=== PATIENT | female | born 1990 | race Caucasian/White ===

== ENCOUNTER 2018-05-03 08:24 | Inpatient (IN) | payer BC ==
[~2018-05-03] VITALS: Ht 165.1 cm; Wt 59.0 kg
[2018-05-03] MEDS ORDERED: CEFAZOLIN SOD 1 GM in D5W 50 ML IV ONE (09:15)
[2018-05-03] MEDS ORDERED: MIDAZOLAM HCL 5 MG/5 ML VIAL IVP ONE (10:17)
[2018-05-03] MEDS ORDERED: MORPHINE SULFATE 10MG/10ML PF AMP EP ONE (10:17)
[2018-05-03] MEDS ORDERED: BUPIVACAINE /DEX PF 0.75% SPINAL 2 ML AMP INJ ONE (10:17)
[2018-05-03] MEDS ORDERED: CLINDAMYCIN 2% VAGINAL CREAM VG ONE (10:17)
[2018-05-03] MEDS ORDERED: LR 1,000 ML IV.SOLN IV ONE (10:17)
[2018-05-03] MEDS ORDERED: NS IRRIG SOLN 1000 ML IR ONE (10:17)
[2018-05-03] MEDS ORDERED: KETOROLAC TROMETHAMINE 60 MG/2 ML VIAL IM PRN (10:45)
[2018-05-03] MEDS ORDERED: MORPHINE SULFATE 10MG/10ML PF AMP SP PRN (10:45)
[2018-05-03] MEDS ORDERED: NALOXONE HCL 0.4 MG/ML AMP (NARCAN) IVP PRN ×2 (10:45)
[2018-05-03] MEDS ORDERED: ONDANSETRON HCL 4 MG/2 ML VIAL IVP PRN (10:45)
[2018-05-03] MEDS ORDERED: NALBUPHINE HCL 10 MG/ML AMP IVP PRN (10:45)
[2018-05-03] MEDS ORDERED: fentaNYL CITRATE/PF 100 MCG/2 ML AMP IVP PRN ×2 (10:45)
[2018-05-03] MEDS ORDERED: OXYCODONE/ACETAMINOPHEN 5-325 TABLET PO PRN (11:30)
[2018-05-03] MEDS ORDERED: HYDROcodone/ACETAMIN 5-325 MG TAB (NORCO/ VICODIN) PO PRN (11:30)
[2018-05-03] MEDS ORDERED: NS 250 ML IV ONE (12:00)
--- NOTE | 2018-05-03 12:30 | NUR ---
Patient received a/ox4, denies pain, assessment complete, patient has andres pad in place no drainage noted at this time, Gamino Catheter in place draining to gravity, IV line to right AC patent and infusing well, family at bedside, educated patient and family on plan of care and call light system and to call for any assistance, they verbalized understanding at this time, bed in lowest position, two side rails up, call light within reach, fall and aspiration precautions in place. Post op vital signs being taken.
[2018-05-03 12:37] VITALS: BP_SYST 95
[2018-05-03] MEDS: ONDANSETRON HCL 4 MG/2 ML VIAL IVP PRN ×3 (13:07→20:57)
--- NOTE | 2018-05-03 13:07 | NUR ---
Zofran/Called Dietary patient resting in bed, complaining of nausea this time, denies pain, educated on Zofran uses and potential side effects, she verbalized understanding, IV line is patent and infusing well, no s/s of infiltration, Dietary called for lunch tray at this time, will follow up as needed, bed in lowest position, two side rails up, call light within reach, fall and aspiration precautions in place.
[2018-05-03] MEDS: DIPHENHYDRAMINE INJ 50 MG/ML VIAL IVP PRN ×2 (14:10→18:08)
--- NOTE | 2018-05-03 14:15 | NUR ---
RN rounds patient resting in bed, calling at this time, complaining of itchiness, shivering and patient vomited about 100ml of clear-yellow fluid, educated on IV Benadryl uses and potential side effects, she verbalized understanding, IV line is patent and infusing well, denies pain, provided with Ice chips and called dietary for a seven up, continuing to monitor, bed in lowest position, two side rails up, call light within reach, fall and aspiration precautions in place.
--- NOTE | 2018-05-03 15:16 | NUR ---
RN rounds patient resting in bed, eyes closed, breathing is even and unlabored, no signs of distress, easy to wake, had 10% of lunch and had some ice chips, states nausea is better, itchiness is only slightly improved, but wants to rest, no other needs at this time, bed in lowest position, two side rails up, call light within reach, fall and aspiration precautions in place, SCD's in place, continuing to monitor.
[2018-05-03] MEDS: KETOROLAC TROMETHAMINE 30 MG VIAL IVP SCH ×2 (16:43→23:33)
--- NOTE | 2018-05-03 16:45 | NUR ---
RN rounds/medication patient resting in bed, complaining of nausea and pain, educated her on medications uses and potential side effects, she verbalized understanding, IV line is patent and infusing well, provided with new emesis bag and ice chips per request, continuing to monitor, bed in lowest position, two side rails up, call light within reach, fall and aspiration precautions in place.
[2018-05-03] MEDS ORDERED: ceFAZolin SODIUM 1 GM in D5W 50 ML IV ONE (18:00)
--- NOTE | 2018-05-03 18:11 | NUR ---
Sukhdev/RN rounds patient resting in bed, awake, states she is still itchy, educated on medication uses and potential side effects, she verbalized understanding, IV line is patent and infusing well, patient educated on side effects of anesthesia as well, she verbalized understanding, no other needs at this time, continuing to monitor, will follow up with vaginal packing removal, patient bed in lowest position, two side rails up, call light within reach, fall and aspiration precautions in place.
--- NOTE | 2018-05-03 18:33 | NUR ---
Closing note patient resting in bed, eyes closed, breathing is even and unlabored, no signs of distress, will endorse removal of vaginal packing to NOC shift nurse per patient request, all other needs met, bed in lowest position, two side rails up, call light within reach, fall and aspiration precautions in place.
--- NOTE | 2018-05-03 19:26 | NUR ---
HANDOFF REPORT received from offgoing nurse Juan-RN at the bedside. Patient is resting comfortably in bed. No SOB, no signs of pain or discomfort. No acute distress. Bed is locked, in the lowest position, 2x side rails up, bed alarm is on. Call light within reach. Encouraged patient to call for assistance. Will continue with plan of care.
--- NOTE | 2018-05-03 20:00 | NUR ---
Patient is complaining of nausea and dizziness. No complaints of pain at this time. Just states that she feels very nauseous. Informed the patient that her nausea medication is not yet due at this time. Patient verbalized understanding. Emesis bag provided for the patient as needed. Patient wants to lie down at this time instead of sitting up. Educated patient to remain side lying, so that she does not aspirate on her vomit. Call light within reach. Encouraged patient to call for assistance.
[2018-05-03 20:37] VITALS: BP_SYST 90
--- NOTE | 2018-05-03 20:57 | NUR ---
Patient complaining of nausea. Provided patient with xochitl DANIELS per MD order, see eMAR. Patient then had an episode of emesis. 150ml out. [place] in color, the same color as the orange jello the patient was eating. Patient unable to tolerate foods. Did not each much of her dinner tray. Removed dinner tray per patient request.
[2018-05-03] MEDS: OXYCODONE/ACETAMINOPHEN 5-325 TABLET PO PRN (21:08)
--- NOTE | 2018-05-03 21:08 | NUR ---
Patient is complaining of pain 7/10 in the vaginal area. Provided medication PERCOCET per MD order, see EMAR for details.
--- NOTE | 2018-05-03 21:44 | NUR ---
Vaginal packing removed from the patient. Red drainage noted on the packing strip. Provide patient with briefs and pads as needed. Also provided ice pack to the vaginal area per MD order.
--- NOTE | 2018-05-03 22:16 | NUR ---
Patient currently resting comfortably in bed, awake but with eyes closed. No SOB, no acute distress, no complaints of pain at this time. Bed is locked, in the lowest position, 2x side rails up, bed alarm is on. Call light is within reach. Encouraged patient to call for assistance.
--- NOTE | 2018-05-04 | NUR ---
PATIENT CALLED FOR ASSISTANCE. REQUESTED FOR THE DOOR OF HER ROOM TO REMAIN OPEN AT ALL TIMES. ALL NEEDS HAVE BEEN MET AT THIS TIME. CALL LIGHT WITHIN REACH. ENCOURAGED PATIENT TO CALL FOR ASSISTANCE.
[2018-05-04 00:22] VITALS: BP_SYST 107
--- NOTE | 2018-05-04 02:11 | NUR ---
PATIENT IS RESTING COMFORTABLY IN BED WITH EYES CLOSED. NO SOB, NO ACUTE DISTRESS, NO SIGNS OF PAIN OR FACIAL GRIMACING. BREATHING IS EVEN AND UNLABORED WITH VISIBLE CHEST RISE AND FALL NOTED. BED IS LOCKED, IN THE LOWEST POSITION, 2X SIDE RAILS UP, BED ALARM IS ON. CALL LIGHT IS WITHIN REACH.
[2018-05-04] MEDS: KETOROLAC TROMETHAMINE 30 MG VIAL IVP SCH ×3 (05:35→18:32)
--- NOTE | 2018-05-04 05:42 | NUR ---
Provided patient with toiletries as needed per patient request. And also provided patient with crackers and cranberry juice per patient request.
--- NOTE | 2018-05-04 06:32 | NUR ---
Gamino catheter has been discontinued per MD order. Instructed patient to notify nurse if she has had 2 voids, or if she is unable to void. Also educated patient that when she does void, a nurse will come to measure the residual left in the bladder. Patient verbalizes understanding. Call light within reach. Encouraged patient to call for assistance.
--- NOTE | 2018-05-04 06:47 | NUR ---
Patient is resting comfortably in bed, awake and alert. No SOB, no acute distress, no complaints of pain at this time. IV site is intact, dressing clean and dry, saline locked. Provided clean pad for the patient. Also provided more ice for the perineal area. Bed is locked, in the lowest position, 2x side rails up, bed alarm is on. Call light is within reach. Encouraged patient to call for assistance. Fall and safety precautions maintained. All needs have been met during this shift. Will endorse care to oncoming dayshift nurse.
--- NOTE | 2018-05-04 06:50 | NUR ---
Patient refuses bed alarm at this time. Call light within reach. Encouraged patient to call.
[2018-05-04 07:43] VITALS: BP_SYST 88
--- NOTE | 2018-05-04 07:45 | NUR ---
opening notes, received pt in bed, pt is aaox4, denies pain this time. iv access clean dry and intact, patent, no s/s of infiltration. pt s/p surgery. no c/o of bleeding, discussed plan of care with pt. pt encouraged to call for assist and pain med. call light in reach. will monitor pt.
--- NOTE | 2018-05-04 08:49 | NUR ---
pt in bed, on her cell phone, bp is still low at 77/50, will inform md. pt stated she tried to void but unable. will cont to monitor.
[2018-05-04 09:20] VITALS: BP_SYST 84
--- NOTE | 2018-05-04 09:20 | NUR ---
pt still low at 84/51, hr 60, pt c/o of dizziness when she is sitting and standing, none when lying down. paged dr hopkins to make aware. no void yet since removal of benitez at 0620am.
--- NOTE | 2018-05-04 09:53 | NUR ---
spoke with dr hopkins re pt's bp , said he is not so much concern abt the bp, said we have to monitor voiding this time. informed md that pt has not voided yet since removal of benitez at 620am . told md that i will encouraged pt to drink more water and md agreed. informed pt, provided ice water. will cont to monitor.
--- NOTE | 2018-05-04 11:35 | NUR ---
pt has not voided yet, encouraged to drink more water. sbp per construction services technician is 90. will cont to monitor.
--- NOTE | 2018-05-04 12:22 | NUR ---
pt in bed sitting, eating lunch, just came back from bathroom, pt stated she feels she needs to void but unable, on little blood came out.
[2018-05-04 12:53] VITALS: BP_SYST 90
--- NOTE | 2018-05-04 13:32 | NUR ---
bladder scan done by press leaderLASHON Kapoor, around 200 cc note. will inform md. pt did not void yet. attempted but unable. got sprite for pt, stated she hates water, did not drink a lot when offered earlier. will cont to monitor.
--- NOTE | 2018-05-04 14:52 | NUR ---
pt not voided yet, she is on her 2nd can of sprite now. will inform md. dr hopkins was called.
[2018-05-04 16:35] VITALS: BP_SYST 131
--- NOTE | 2018-05-04 17:56 | NUR ---
JORDAN CATH: # 14 FR Jordan catheter with 10 cc bulb inserted with use of sterile technique. Bulb inflated with 10 cc sterile water. Immediate return of 0 cc urine noted. Bedside drainage bag placed below level of bladder. Pt tolerated procedure well.
--- NOTE | 2018-05-04 18:36 | NUR ---
No drainage from benitez at this time. will ask LASHON Garner to re check benitez.
--- NOTE | 2018-05-04 18:37 | NUR ---
pt given schedule pain med, stated she has pain of 6/10. will cont to monitor.
--- NOTE | 2018-05-04 19:15 | NUR ---
closing notes, pt stable, had 2x void this pm. benitez reinserted per md by pablo gilmore but still no drainage. informed night rn and asked to recheck it and informed also of the new orders from dr hopkins. wright will be here in the morning.
--- NOTE | 2018-05-04 19:30 | NUR ---
Initial Notes Received handoff report from offgoing nurse at the bedside. Patient is awake and alert, resting comfortably in bed. No SOB, no acute distress, no complaints of pain. IV site is intact, dressing clean and dry, saline locked. Benitez catheter in place, to drain by gravity; however, no urine noted in the benitez catheter at this time. Offgoing nurse LASHON Ann stated that the benitez catheter was inserted by LASHON Garner at 1800. LASHON Ann stated that bladder scan was done prior to benitez catheter placement, and it was >400ml. Patient does not complain of urinary urgency or discomfort at this time. Call light is within reach. Explained plan of care to the patient. Patient verbalizes understanding. Will continue with plan of care.
--- NOTE | 2018-05-04 20:00 | NUR ---
Patient refuses bed alarm at this time
[2018-05-04 20:30] VITALS: BP_SYST 108
--- NOTE | 2018-05-04 20:50 | NUR ---
Patient complained of pain from the benitez catheter. Stated that urine is leaking all of the bed, and the catheter is painful. Benitez catheter noted to now have minimal < 5ml red blood in the tubing of the benitez catheter. Checked placement on the benitez, but still no urine output noted. Patient verbalized discomfort, and refused to have the benitez catheter. Benitez catheter removed per patient request. Immediately after removing the benitez catheter, patient verbalized urgency to pee, and ran to the restroom. No urine measurement done due to patient urgency. However, Bladder scan performed. Patient largest measurement is 200ml urine in the bladder. Charge nurse made aware, and stated to wait for another urine void to measure again. Then call the doctor.
--- NOTE | 2018-05-04 21:40 | NUR ---
Patient states that she still has not had a 2nd urine void after having the benitez catheter removed.
--- NOTE | 2018-05-04 21:45 | NUR ---
Bladder scan done. Patient currently has 259ml urine in the bladder. No complaints of discomfort or urinary urgency at this time.
[2018-05-04] MEDS: OXYCODONE/ACETAMINOPHEN 5-325 TABLET PO PRN (21:52)
--- NOTE | 2018-05-04 21:52 | NUR ---
Patient is complaining of severe pain. Provided Percocet PRN per MD order, see eMAR for details. Also provided patient with more fluids for hydration. Sister is at the bedside, with [employer], for the patient to eat.
--- NOTE | 2018-05-04 22:45 | NUR ---
Dr hopkins called. Notified him that the patient had no urine in the benitez catheter, only blood, and that the benitez was causing discomfort for the patient, so the patient refused the benitez. Also mentioned latest bladder scan for residual. Dr Hopkins made aware and stated to monitor patient's urine output for the night, and that he will check the patient in the morning.
--- NOTE | 2018-05-05 | NUR ---
Patient resting comfortably in bed, awake. No SOB, no acute distress, no signs of pain or facial grimacing. Breathing even and unlabored with visible chest rise and fall noted. Bed is locked, in the lowest position, 2x side rails up. Call light within reach. Encouraged patient to call for assistance.
[2018-05-05] MEDS: KETOROLAC TROMETHAMINE 30 MG VIAL IVP SCH ×2 (00:17→05:20)
[2018-05-05 00:51] VITALS: BP_SYST 100
--- NOTE | 2018-05-05 02:00 | NUR ---
Provided more ice pack for the perineal area as needed. Patient does not complain of any pain at this time. Encouraged patient to call for assistance.
--- NOTE | 2018-05-05 04:27 | NUR ---
Patient resting comfortably in bed, eyes closed. Breathing even and unlabored. No SOB, no acute distress, no signs of pain or facial grimacing. Call light within reach.
--- NOTE | 2018-05-05 06:00 | NUR ---
Bladder scan done on the patient immediately following void. Patient had 64ml residual in the bladder. No complaints of bladder discomfort at this time.
--- NOTE | 2018-05-05 07:24 | NUR ---
Handoff report given to oncoming dayshift nurse LASHON Ann at the bedside. Patient is awake and alert, resting comfortably in bed. No SOB, no acute distress, no complaints of pain at this time. IV site is intact, dressing clean and dry, saline locked. Bed is locked, in the lowest position, 2x side rails up, bed alarm is on. Call light is within reach. Fall and safety precautions maintained. All needs have been met during this shift.
--- NOTE | 2018-05-05 07:55 | NUR ---
OPENING NOTES; PT IN BED, DENIES PAIN. AAOX4, NO SOB, NO RESP DISTRESS, PT'S LAST VOID WAS AROUND 6AM WITH 100 VOLUME RESIDUAL WAS 64ML. SAFETY PRECAUTION IN PLACE. CALL LIGHT IN REACH, BED IN LOW POSITION. WILL CONT TO MONITOR.
[2018-05-05 08:09] VITALS: BP_SYST 91
--- NOTE | 2018-05-05 10:00 | NUR ---
PT IN BED, NO C/O PAIN, APPEARS COMFORTABLE, WAITING FOR MD TO SEE HER.
[2018-05-05 10:41] VITALS: BP_SYST 91
[2018-05-05] MEDS ORDERED: IBUP-1969 PO (10:53)
[2018-05-05] MEDS ORDERED: PERC10 GT (10:55)
--- NOTE | 2018-05-05 11:30 | NUR ---
D/C Patient Patient given medication reconciliation form and D/C instructions. Exit Care provided. Patient verbalized understanding. MD discussed with patient the results and treatment provided. Ambulatory with steady gait for discharge to home. Patient in stable condition, ID band removed. IV catheter removed, intact and dressing applied, no active bleeding. Rx of MOTRIN AND PERCOCET given. Patient educated on pain management. All belongings sent with patient.
[2018-05-05 12:07] VITALS: BP_SYST 119
== END 2018-05-05 11:30 | disposition home or self-care (01) | DRG 748 ==
LOC: SDS 08:24 → SMU 12:49 → SDS 12:49 → SMU 05-04 19:31 → SDS 05-05 11:58 → SMU 05-05 11:58
PROVIDERS: ADMIT Specialist; ATTEND Specialist
PROC: 0JQC0ZZ Repair Pelvic Region Subcutaneous Tissue and Fascia, Open Approach (ICD-10-PCS; principal; 2018-05-04)
PROC: 0JQC0ZZ Repair Pelvic Region Subcutaneous Tissue and Fascia, Open Approach (ICD-10-PCS; 2018-05-04)
PROC: 0TSD0ZZ Reposition Urethra, Open Approach (ICD-10-PCS; 2018-05-04)
DX: N39.3 Stress incontinence (female) (male) (principal); N81.10 Cystocele, unspecified; N81.6 Rectocele; R33.9 Retention of urine, unspecified
CPT/HCPCS: 87081; 88305; J0690; J1200; J1885; J2250; J2274; J2310; J2405; J3490; J7060; J7120